=== PATIENT | male | born 1960 | race Hispanic/Latino ===

== ENCOUNTER 2017-12-29 09:00 | Day surgery (SDC) | payer OTHER ==
[2017-12-29] MEDS ORDERED: Propofol 10 mg/ml Inj (20 ML) ONE (11:08)
[2017-12-29 14:53] VITALS: TEMP 97.5
[2017-12-29 15:04] VITALS: PULSE 81; RESP 16; O2SAT 98
[2017-12-29 15:19] VITALS: BP 158/75
== END 2017-12-29 12:55 | disposition home or self-care (01) ==
LOC: C.ENDO 09:00
PROVIDERS: ATTEND Internal Medicine
DX: D12.0 Benign neoplasm of cecum (principal); K21.9 Gastro-esophageal reflux disease without esophagitis; K29.70 Gastritis, unspecified, without bleeding; D12.3 Benign neoplasm of transverse colon; K64.8 Other hemorrhoids
CPT/HCPCS: 43239; 45380; 82948; 88305; 88313; 88342; J2704